=== PATIENT | female | born 1940 | race Caucasian/White ===

== ENCOUNTER 2023-08-15 14:00 | Emergency (ER) | payer MEDICARE, OTHER, SELFPAY ==
[2023-08-15 14:04] VITALS: BP 152/72; PULSE 60; RESP 18; TEMP 36.6; O2SAT 98; BMI 25.8
--- NOTE | 2023-08-15 15:12 | ED.EXTPRO1 ---
HPI - Extremity Problem General Chief complaint: Extremity Problem, Nontraumatic Stated complaint: BLISTER BOTH LEGS Time Seen by Provider: 08/15/23 14:59 Source: patient Mode of arrival: walk-in History of Present Illness HPI Narrative: 82-year-old female presents for bilateral red rash and blisters. It's been on the insides of both legs for about a week. 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 She now has a small area on her left forearm. She had been working outside in some weeds. No difficulty breathing or swallowing. No fever. The blisters began about three days ago. Related Data Home Medications Medication Instructions Recorded Confirmed dexamethasone 4 mg tablet mg 08/15/23 doxycycline hyclate 100 mg capsule mg 08/15/23 fluocinonide 0.05 % topical cream applic topical 08/15/23 levothyroxine 50 mcg tablet mcg 08/15/23 liothyronine 5 mcg tablet mcg 08/15/23 losartan 100 mg tablet mg 08/15/23 spironolactone 25 mg tablet mg 08/15/23 Previous Rx's Medication Instructions Recorded prednisone 10 mg tablet See Rx Instructions .Route 08/15/23 .COMPLEX #30 tabs Allergies Allergy/AdvReac Type Severity Reaction Status Date / Time No Known Drug Allergies Allergy Verified 08/15/23 14:08 Review of Systems ROS Narrative A ten point review of systems is negative except as noted above. Exam Narrative Exam Narrative: Nurses note and vital signs reviewed and patient is not hypoxic. General: The patient appears well and in no apparent distress. Patient is resting comfortably on cart. Skin: Warm, dry, no pallor noted. There is significant rash present primarily on the medial aspects of each leg. It's erythematous and goes from mid thigh down towards the ankle. There are several blisters present as well. There is a small area of rash on her left forearm as well. Head: Normocephalic, atraumatic Eye: Normal conjunctiva, no drainage Ears, Nose, Mouth, and Throat: oral mucosa is moist. Nares patent. Cardiovascular: not tachycardic Respiratory: Patient is in no distress, no accessory muscle use, lungs are clear to auscultation, no wheezing, rales or rhonchi Back: non-tender GI: soft and nontender Musculoskeletal: The patient has no evidence of calf tenderness, no pitting edema, symmetrical pulses noted bilaterally Neurological: A&O, normal speech Psychiatric: Cooperative Constitutional Vital Signs, click to edit/add: Last Vital Signs Temp 98 F 08/15/23 14:04 Pulse 60 08/15/23 14:04 Resp 18 08/15/23 14:04 BP 152/72 H 08/15/23 14:04 Pulse Ox 98 08/15/23 14:04 O2 Del Method Room Air 08/15/23 14:04 Course Vital Signs Vital signs: Vital Signs Temperature 98 F 08/15/23 14:04 Pulse Rate 60 08/15/23 14:04 Respiratory Rate 18 08/15/23 14:04 Blood Pressure 152/72 H 08/15/23 14:04 Pulse Oximetry 98 08/15/23 14:04 Oxygen Delivery Method Room Air 08/15/23 14:04 Temperature 98 F 08/15/23 14:04 Pulse Rate 60 08/15/23 14:04 Respiratory Rate 18 08/15/23 14:04 Blood Pressure 152/72 H 08/15/23 14:04 Pulse Oximetry 98 08/15/23 14:04 Oxygen Delivery Method Room Air 08/15/23 14:04 MDM - Extremity (Nontraumatic) MDM Narrative Medical decision making narrative: my clinical impression is that the patient has poison fanta. There is no evidence of an infection. She's given IM Solu-Medrol and prescribed oral prednisone. Treatment diagnosis and follow-up were discussed with the patient. Differential Diagnosis Differential diagnosis: Likely cellulitis and other (dermatitis, poison fanta, drug reaction) Discharge Plan Discharge Chief Complaint: Extremity Problem, Nontraumatic Clinical Impression: Poison fanta dermatitis Patient Disposition: Home, Self-Care Time of Disposition Decision: 15:11 Condition: Good Mode of Transportation: Private Vehicle Prescriptions / Home Meds: New prednisone 10 mg tablet See Rx Instructions .ROUTE .COMPLEX Qty: 30 0RF Rx Instructions: 4 by mouth daily for three days then 3 by mouth daily for three days then 2 by mouth daily for three days then 1 by mouth daily for three days No Action doxycycline hyclate 100 mg capsule liothyronine 5 mcg tablet spironolactone 25 mg tablet levothyroxine 50 mcg tablet dexamethasone 4 mg tablet fluocinonide 0.05 % cream TOPICAL losartan 100 mg tablet Instructions: Poison Fanta (ED) Stand Alone Forms: Portal Instructions Referrals: Physician,Non-Staff, MD [Primary Care Provider] - 1 week
[2023-08-15] MEDS: METHYLPREDNISOLONE SOD SUCC PF 125 MG/2 ML VIAL 250 MG IM (15:36)
[2023-08-15 15:53] VITALS: BP 136/87; PULSE 82; RESP 16; O2SAT 99
== END 2023-08-15 15:55 | disposition home or self-care (01) ==
PROVIDERS: Emergency Provider Emergency Medicine
DX: L23.7 Allergic contact dermatitis due to plants, except food (principal); Z79.899 Other long term (current) drug therapy; Z79.890 Hormone replacement therapy
CPT/HCPCS: 96372; 99284; J2930